=== PATIENT | female | born 1985 | race Caucasian/White ===

== ENCOUNTER 2020-09-14 00:50 | Inpatient (IN) | payer OTHER ==
[2020-09-14] MEDS ORDERED: CITRIC ACID/SODIUM CITRATE 30 ML UNIT-DOSE CUP PO ONE ×2 (01:00→04:14)
[2020-09-14] MEDS ORDERED: ELECTROLYTE-148 SOLN 500 ML IV ONE ×2 (01:00→04:12)
[2020-09-14] MEDS ORDERED: BUTORPHANOL TARTRATE 2 MG/ML VIAL IVPB ONE (01:05)
[2020-09-14] MEDS ORDERED: PROMETHAZINE HCL 25 MG/1 ML VIAL IVPB ONE (01:05)
[2020-09-14] MEDS ORDERED: ELECTROLYTE-148 SOLN 1,000 ML IV SCH ×2 (01:30→04:15)
[2020-09-14] MEDS ORDERED: PROMETHAZINE HCL 25 MG/1 ML VIAL ONE (01:45)
[2020-09-14] MEDS ORDERED: BUTORPHANOL TARTRATE 2 MG/ML VIAL ONE (01:45)
[2020-09-14] MEDS ORDERED: morphine SULFATE/PF 0.5 MG/ML (2cc Syringe - QUVA) ONE (02:46)
[2020-09-14] MEDS ORDERED: DEXAMETHASONE SOD PHOSPHATE 4 MG/1 ML VIAL ONE (03:49)
[2020-09-14] MEDS ORDERED: GLYCOPYRROLATE 0.2 MG/1 ML VIAL ONE (03:49)
[2020-09-14] MEDS ORDERED: OXYTOCIN 10 UNITS/ML VIAL ONE (03:49)
[2020-09-14] MEDS ORDERED: PHENYLEPHRINE HCL 10 MG/1 ML SINGLE DOSE VIAL ONE (03:49)
[2020-09-14] MEDS ORDERED: ceFAZolin SODIUM 1 GM VIAL ONE (03:49)
[2020-09-14] MEDS ORDERED: ONDANSETRON 4 MG/2 ML VIAL ONE (03:49)
[2020-09-14] MEDS ORDERED: oxyCODONE HCL 5 MG TABLET PO PRN ×2 (04:14)
[2020-09-14] MEDS ORDERED: IBUPROFEN 800 MG/8 ML IJ IVPB PRN (04:14)
[2020-09-14] MEDS ORDERED: SENNOSIDES/DOCUSATE COMBO (SENNA PLUS) TABLET (UD) PO PRN (04:14)
[2020-09-14] MEDS ORDERED: METHYLERGONOVINE MALEATE 0.2 MG/1 ML AMP IM PRN (04:14)
[2020-09-14] MEDS ORDERED: DEXTROSE 5%-LACTATED RINGERS 1,000 ML IV SCH (04:15)
[2020-09-14] MEDS ORDERED: OXYTOCIN 20 UNITS in 0.9% NS 20 UNIT/1,000 ML INFUS.BAG IV SCH (04:15)
[2020-09-14] MEDS ORDERED: ONDANSETRON 4 MG/2 ML VIAL IVPUSH PRN (04:35)
[2020-09-14] MEDS ORDERED: BUPIVACAINE HCL/PF 0.25% (2.5MG/ML) 10 ML VIAL ONE (04:52)
[2020-09-14] MEDS ORDERED: OXYTOCIN 20 UNITS in 0.9% NS 40 UNIT/2,000 ML INFUS.BAG IV ONE (05:37)
[2020-09-14 08:08] VITALS: BMI 31.7
[2020-09-14] MEDS: PRENATAL VITAMINS W/ FOLIC ACID TABLET (FP) PO SCH (11:09)
[2020-09-14] MEDS: ACETAMINOPHEN 325 MG TABLET (FP) PO PRN ×2 (13:38→20:41)
[2020-09-14] MEDS: IBUPROFEN 600 MG TABLET (FP) PO PRN (20:36)
[2020-09-15] MEDS ORDERED: BISACODYL 10 MG SUPP.RECT RC PRN (04:14)
[2020-09-15] MEDS: ACETAMINOPHEN 325 MG TABLET (FP) PO PRN ×3 (06:42→21:19)
[2020-09-15] MEDS: SIMETHICONE 80 MG TAB.CHEW (FP) PO PRN ×2 (06:42→21:19)
[2020-09-15] MEDS: IBUPROFEN 600 MG TABLET (FP) PO PRN ×3 (06:42→21:19)
[2020-09-15 08:38] LABS: BASO % 0.3 % (0-2.0); EOS % 0.6 % (0-4.5); HEMATOCRIT 26.2 % (32.4-45.2); HEMOGLOBIN 9.1 GM/dL (10.7-15.3); LYMPH % 15.4 % (8-40); MCH 33.1 pg (25.7-33.7); MCHC 34.8 g/dl (32.0-36.0); MEAN CELL VOLUME 95.1 fl (80-96); MEAN PLT VOLUME 8.7 fl (7.5-11.1); MONO % 5.4 % (3.8-10.2); NEUT % 78.3 % (42.8-82.8); PLATELET COUNT 168 K/MM3 (134-434); RBC 2.76 M/mm3 (3.60-5.2); RDW 12.7 % (11.6-15.6); WHITE BLOOD COUNT 10.3 K/mm3 (4.0-10.0)
[2020-09-15] MEDS: PRENATAL VITAMINS W/ FOLIC ACID TABLET (FP) PO SCH (09:41)
[2020-09-16] MEDS: IBUPROFEN 600 MG TABLET (FP) PO PRN (07:40)
[2020-09-16] MEDS: ACETAMINOPHEN 325 MG TABLET (FP) PO PRN (07:41)
[2020-09-16] MEDS: PRENATAL VITAMINS W/ FOLIC ACID TABLET (FP) PO SCH (10:25)
[2020-09-16 11:26] VITALS: BP 113/73; PULSE 83; TEMP 97.8
== END 2020-09-16 15:05 | disposition home or self-care (01) | DRG 540 ==
LOC: JLDR 00:50 → J3W 06:11
PROVIDERS: ADMIT Obstetrics & Gynecology; ATTEND Obstetrics & Gynecology
PROC: 10D00Z1 Extraction of Products of Conception, Low, Open Approach (ICD-10-PCS; principal; 2020-09-14)
PROC: 10907ZC Drainage of Amniotic Fluid, Therapeutic from Products of Conception, Via Natural or Artificial Opening (ICD-10-PCS; 2020-09-14)
DX: O34.211 Maternal care for low transverse scar from previous cesarean delivery (principal); O34.593 Maternal care for other abnormalities of gravid uterus, third trimester; Z3A.39 39 weeks gestation of pregnancy; Z37.0 Single live birth
CPT/HCPCS: 36415; 85025